=== PATIENT | male | born 1945 | race Caucasian/White ===

== ENCOUNTER 2017-11-01 13:53 | Emergency (ER) | payer MEDICARE, BC ==
[2017-11-01] MEDS ORDERED: HYDROmorphone 0.5 MG/0.5 ML Syringe IVPUSH ONE ×2 (14:18→16:13)
--- NOTE | 2017-11-01 14:18 | EDM.PDOC ---
ED HPI GENERAL MEDICAL PROBLEM - General Chief Complaint: Abdominal Pain Stated Complaint: [id number] CRAMPING POST SURGERY Time Seen by Provider: 11/01/17 14:05 Source of Information: Reports: Patient History Limitations: Reports: No Limitations - History of Present Illness INITIAL COMMENTS - FREE TEXT/NARRATIVE: This 71 yo male patient reports to the ED with diffuse abdominal pain. The patient reports that he had surgery (Robotic Radical Prostatectomy) last week in [place]. The patient reports that he was discharged on Wednesday and got back to [facility] when they stopped due to increased abdominal pain. The patient was admitted overnight at [facility] and released on Wednesday morning. The patient was given a dose of Toradol and a bottle of Mag Citrate. The patient reports he has not had a bowel movement, but feels bloated. The patient reports that the last bowel movement was last Wednesday at 0500, before surgery at 0530. The patient reports that he has Stage 3 Kidney disease and normally sees Dr. Mendoza. Onset: Gradual Duration: Day(s):, Constant, Getting Worse Location: Reports: Abdomen Quality: Reports: Ache (cramping) Severity: Severe Improves with: Reports: None Worsens with: Reports: None Context: Reports: Other (Previous surgery) Associated Symptoms: Reports: No Other Symptoms Bilateral Lower Abdomen Pain Score (Numeric/FACES): 5 - Related Data Allergies Allergy/AdvReac Type Severity Reaction Status Date / Time atorvastatin calcium AdvReac Body Aches Verified 11/01/17 14:05 [From Lipitor] rosuvastatin calcium AdvReac Body Aches Verified 11/01/17 14:05 [From Crestor] Home Meds: Home Meds Albuterol [Ventolin HFA] 2 puff INH QID PRN 06/15/13 [History] Aspirin/Calcium Carbonate/Mag [Aspirin Buffered] 1 tab PO DAILY 06/15/13 [ History] Cholecalciferol (Vitamin D3) [Vitamin D] 2 tab PO DAILY 06/15/13 [History] Fish Oil/[place]riv[place]-3 Fatty Acids [Fish Oil 1,000 MG] 2 gm PO DAILY 06/15/13 [History ] Losartan Potassium [Cozaar] 100 mg PO DAILY 06/15/13 [History] Simvastatin [Zocor] 20 mg PO BEDTIME 06/15/13 [History] amLODIPine Besylate [Amlodipine Besylate] 1 tab PO DAILY 06/15/13 [History] Oxybutynin 5 mg PO TID PRN 11/01/17 [History] Sennosides/Docusate Sodium [Sennosides-Docusate Sodium] 1 tab PO BID 11/01/17 [ History] Sildenafil [Revatio] 20 mg PO DAILY 11/01/17 [History] oxyCODONE 5 mg PO Q4H PRN 11/01/17 [History] Past Medical History - Past Health History Medical/Surgical History: Denies Medical/Surgical History ED ROS GENERAL - Review of Systems Review Of Systems: ROS reveals no pertinent complaints other than HPI. ED EXAM, GI/ABD - Physical Exam Exam: See Below Exam Limited By: No Limitations General Appearance: Alert, WD/WN, Moderate Distress Eyes: Bilateral: Normal Appearance, EOMI Ears: Normal External Exam, Normal Canal, Hearing Grossly Normal, Normal TMs Nose: Normal Inspection, Normal Mucosa, No Blood Throat/Mouth: Normal Inspection, Normal Lips, Normal Teeth, Normal Gums, Normal Oropharynx, Normal Voice, No Airway Compromise Head: Atraumatic, Normocephalic Neck: Normal Inspection Respiratory/Chest: No Respiratory Distress, Lungs Clear, Normal Breath Sounds, No Accessory Muscle Use, Chest Non-Tender Cardiovascular: Normal Peripheral Pulses, Regular Rate, Rhythm, No Edema, No Gallop, No JVD, No Murmur, No Rub GI/Abdominal Exam: Distended, Tender, Abnormal Bowel Sounds (hypoactive) (Male) Exam: Deferred Rectal (Males) Exam: Deferred Back Exam: Normal Inspection, Full Range of Motion, NT Extremities: Normal Inspection, Normal Range of Motion, Non-Tender, Normal Capillary Refill, No Pedal Edema Psychiatric: Normal Affect, Normal Mood Skin Exam: Warm, Dry, Intact, Normal Color, No Rash Lymphatic: No Adenopathy Course - Vital Signs Last Recorded V/S: Last Vital Signs Temp 37.1 C 11/01/17 14:00 Pulse 139 H 11/01/17 14:00 Resp 17 11/01/17 14:00 BP 113/86 11/01/17 14:00 Pulse Ox 94 L 11/01/17 14:00 - Orders/Labs/Meds Orders: Active Orders 24 hr Category Date Time Status Abdomen 2V AP Flat Upright [CR] Urgent Exams 11/01/17 14:30 Ordered Labs: Laboratory Tests 11/01/17 11/01/17 Range/Units 14:28 14:28 WBC 12.2 H (5.0-10.0) 10^3/uL RBC 4.48 L (4.6-6.2) 10^6/uL Hgb 12.7 L (14.0-18.0) g/dL Hct 38.7 L (40.0-54.0) % MCV 86.4 (80-100) fL MCH 28.3 (27.0-34.0) pg MCHC 32.8 L (33.0-35.0) g/dL Plt Count 230 (150-450) 10^3/uL Neut % (Auto) 79.0 H (42.2-75.2) % Lymph % (Auto) 9.9 L (20.5-50.1) % [place] % (Auto) 10.6 H (2-8) % Eos % (Auto) 0.3 L (1.0-3.0) % Baso % (Auto) 0.2 (0.0-1.0) % Sodium 134 L (135-145) mmol/L Potassium 5.1 H (3.6-5.0) mmol/L Chloride 100 L (101-111) mmol/L Carbon Dioxide 25.0 (21.0-31.0) mmol/L Anion Gap 14.1 BUN 55 H (7-18) mg/dL Creatinine 4.3 H D (0.6-1.3) mg/dL Est Cr Clr Drug Dosing 18.32 mL/min Estimated GFR (MDRD) 14 BUN/Creatinine Ratio 12.79 Glucose 135 H (74-105) mg/dL Calcium 8.3 L (8.4-10.2) mg/dl Total Bilirubin 0.7 (0.2-1.0) mg/dL AST 18 (10-42) IU/L ALT 10 (10-60) IU/L Alkaline Phosphatase 51 (42-121) IU/L Total Protein 6.6 L (6.7-8.2) g/dl Albumin 3.1 L (3.2-5.5) g/dl Globulin 3.5 Albumin/Globulin Ratio 0.89 Meds: Medications Discontinued Medications Generic Name Dose Route Start Last Admin Trade Name Freq PRN Reason Stop Dose Admin Hydromorphone HCl 0.5 mg 11/01/17 14:18 11/01/17 14:35 Dilaudid IVPUSH 11/01/17 14:19 0.5 mg ONETIME ONE Administration Ondansetron HCl 4 mg 11/01/17 14:29 11/01/17 14:35 Zofran IV 11/01/17 14:30 4 mg ONETIME ONE Administration Departure - Departure Time of Disposition: 15:29 Disposition: DC/Tfer to Acute Hospital 02 Condition: Poor Clinical Impression: Bowel obstruction Qualifiers: Intestinal obstruction type: unspecified Intestinal obstruction extent: partial Qualified Code(s): K56.600 - Partial intestinal obstruction, unspecified as to cause Acute on chronic kidney failure Qualifiers: Acute renal failure type: unspecified Chronic kidney disease stage: stage 3 ( moderate) Qualified Code(s): N17.9 - Acute kidney failure, unspecified; N18.3 - Chronic kidney disease, stage 3 (moderate) - Discharge Information *PRESCRIPTION DRUG MONITORING PROGRAM REVIEWED*: Not Applicable *COPY OF PRESCRIPTION DRUG MONITORING REPORT IN PATIENT MINDA: Not Applicable Forms: Interfacility Transfer [facility] Care Plan Goals: The patient and his were advised of the examination, x-ray and lab results during the visit. The patient was given IV Zofran and IV Dilaudid while in the ED. The patient and his determined that they would drive their personal vehicle to [place]. The patient was advised not to eat or drink anything until they have been seen in [facility]. Discussed the patient's history, examination and lab results with Dr. Allen. Dr. Allen accepted the patient for continued evaluation and further management as an inpatient at [facility] in [place]. - My Orders Last 24 Hours: My Active Orders 11/01/17 14:30 Abdomen 2V AP Flat Upright [CR] Urgent - Assessment/Plan Last 24 Hours: My Active Orders 11/01/17 14:30 Abdomen 2V AP Flat Upright [CR] Urgent
[2017-11-01] MEDS ORDERED: Ondansetron 4 MG/2 ML SDV IV ONE (14:29)
[2017-11-01 14:53] LABS: ANION GAP 14.1
== END 2017-11-01 16:46 ==
LOC: DL.ED 13:53
DX: K56.600 Partial intestinal obstruction, unspecified as to cause (principal); N17.9 Acute kidney failure, unspecified; N18.3 Chronic kidney disease, stage 3 (moderate); Z88.8 Allergy status to other drugs, medicaments and biological substances; Z79.899 Other long term (current) drug therapy
CPT/HCPCS: 36415; 74019; 80053; 85025; 96374; 96375; 96376; 99284; J1170; J2405

== ENCOUNTER 2021-01-30 05:27 | Day surgery (SDC) | payer MEDICARE, BC ==
[2021-01-30] MEDS ORDERED: Midazolam 1 MG/ML 2 ML SDV IV ONE ×5 (05:28→06:52)
[2021-01-30] MEDS ORDERED: fentaNYL 100 MCG/2 ML SDV IV ONE ×3 (05:28→06:37)
[2021-01-30] MEDS ORDERED: Midazolam 1 MG/ML 2 ML SDV ONE (05:34)
[2021-01-30] MEDS ORDERED: fentaNYL 100 MCG/2 ML SDV ONE (05:35)
[2021-01-30] MEDS ORDERED: Dextrose 5%-0.45% NaCl 1,000 ML IV SCH (06:00)
[2021-01-30] MEDS ORDERED: Sodium Chloride 0.9% 10 ML Syringe FLUSH SCH (06:00)
[2021-01-30] MEDS ORDERED: Sodium Chloride 0.9% 10 ML Syringe FLUSH PRN (06:00)
--- NOTE | 2021-01-30 13:20 | OR ---
DATE: 01/30/2021 PROCEDURES: Total colonoscopy, terminal ileoscopy, NBI, and multiple pinch biopsies. INSTRUMENT USED: PCF-H190DL Olympus video colonoscope. PREMEDICATIONS: Fentanyl 100 mcg intravenous, Versed 3 mg intravenous. Nasal O2 cannula. The procedure was done under pulse oximetry, BP recording, and monitor worker. INDICATIONS: The patient with chronic intermittent diarrhea unexplained, not responsive to medical measures. Had previous colonic adenoma. Colonoscopy examination is done for detection of any polypoid lesions and removal, biopsies to be obtained for microscopic colitis, endoscopic hemostasis therapy if needed. DESCRIPTION OF PROCEDURE: Initial rectal exam was unremarkable. Rigid anoscopy was normal. The colonoscope was passed with ease. Numerous scattered diverticula were noted in the distal left colon along with deformity. The scope was passed with ease up to and beyond the ileocecal junction to visualize the terminal ileum. Benign, more than 1 cm sized polypoid fold was noted, NBI views were obtained, photographs were taken, and multiple pinch biopsies were obtained and sent for histopathology. Multiple pinch biopsies were also taken from the normal-appearing terminal ileum. No bleeding was noted from any of the visualized areas at the commencement of the examination. Photographs were taken of the normal-appearing cecum. The bowel preparation was found to be adequate, [place] scale 2 in the right and left colon, 3 in transverse colon, total score 7. No stricture, no vascular ectasia. No large isolated ulcerations seen. No evidence of diffuse inflammatory bowel disease in the form of friability, contact bleeding, or ulcerations. No colonic polyp identified. Probing the proximal sides of folds and flexures using adequate distention and clearing up the stool material, withdrawal of scope was made. Multiple pinch biopsies were taken from normal-appearing mucosa of the mid transverse colon, mid descending colon, and rectosigmoid and sent for any histopathologic evidence of microscopic colitis. No bleeding was noted from any of the visualized areas at the completion of examination. IMPRESSION: 1. Diverticulosis. 2. Terminal ileum with polyp. The patient tolerated the procedure well. [facility] /[id number]
== END 2021-01-30 09:15 | disposition home or self-care (01) ==
LOC: DL.ENDO 05:27
PROVIDERS: ATTEND Internal Medicine Gastroenterology
DX: K52.832 Lymphocytic colitis (principal); K57.30 Diverticulosis of large intestine without perforation or abscess without bleeding; K63.5 Polyp of colon; N40.0 Benign prostatic hyperplasia without lower urinary tract symptoms; J45.909 Unspecified asthma, uncomplicated; I12.9 Hypertensive chronic kidney disease with stage 1 through stage 4 chronic kidney disease, or unspecified chronic kidney disease; N18.9 Chronic kidney disease, unspecified; R73.9 Hyperglycemia, unspecified; Z86.010 Personal history of colon polyps; Z85.46 Personal history of malignant neoplasm of prostate; Z01.812 Encounter for preprocedural laboratory examination; Z20.822 Contact with and (suspected) exposure to COVID-19
CPT/HCPCS: 45380; J2250; J3010; J7042; U0002; 88305

== ENCOUNTER 2021-06-05 05:21 | Day surgery (SDC) | payer MEDICARE, BC ==
[2021-06-05] MEDS ORDERED: Midazolam 1 MG/ML 2 ML SDV IV ONE ×3 (05:22→06:33)
[2021-06-05] MEDS ORDERED: fentaNYL 100 MCG/2 ML SDV IV ONE ×3 (05:22→06:32)
[2021-06-05] MEDS ORDERED: Sodium Chloride 0.9% 10 ML Syringe FLUSH PRN (06:00)
[2021-06-05] MEDS ORDERED: Dextrose 5%-0.45% NaCl 1,000 ML IV SCH (06:00)
[2021-06-05] MEDS ORDERED: Midazolam 1 MG/ML 2 ML SDV ONE (06:01)
[2021-06-05] MEDS ORDERED: fentaNYL 100 MCG/2 ML SDV ONE (06:02)
[2021-06-05] MEDS ORDERED: Sodium Chloride 0.9% 10 ML Syringe FLUSH SCH (09:00)
== END 2021-06-05 08:53 | disposition home or self-care (01) ==
LOC: DL.ENDO 05:21
PROVIDERS: ATTEND Internal Medicine Gastroenterology
DX: K22.70 Barrett's esophagus without dysplasia (principal); K52.832 Lymphocytic colitis; K21.9 Gastro-esophageal reflux disease without esophagitis; K29.80 Duodenitis without bleeding; K44.9 Diaphragmatic hernia without obstruction or gangrene; I10 Essential (primary) hypertension; E78.5 Hyperlipidemia, unspecified; R73.9 Hyperglycemia, unspecified; Z85.46 Personal history of malignant neoplasm of prostate; Z01.812 Encounter for preprocedural laboratory examination; Z20.822 Contact with and (suspected) exposure to COVID-19
CPT/HCPCS: 43239; 87077; J2250; J3010; J7042; U0002; 88305